=== PATIENT | male | born 1945 | race Caucasian/White ===

== ENCOUNTER 2017-11-07 08:06 | Outpatient (CLI) | payer MEDICARE ==
[~2017-11-07] VITALS: Ht 170.2 cm; Wt 86.4 kg
[~2017-11-07 08:06] MED LIST: ASPIRIN 81M81 MG/TA2 PO; ATIVAN 0.50.5 MG/TAB PO; CENTRUM SILVER1 TA1 PO; CEPHALEXIN500 M1 PO; CIPRO 500MG TA500 MG PO; COLACE 100100 MG/CAP PO; ESTER-C 5001 TAB PO; FELDENE20 MG PO; FLONASE NASAL S16 GM NS; LIORESAL 1010 MG/TAB PO; LOPID 600M600 MG/TAB PO; NAPROSYN 2250 MG/TAB PO; NEURONTIN300 MG/CAP PO; NEURONTIN600 MG/TAB PO; NORCO 325 MG-51 TAB PO; NORCO 325 MG-7.1 TAB PO; OXYCONTIN 20MG20 MG PO; PERCOCET 325 MG1 TA2 PO; PRILOSEC 20MG20 MG PO; PRINIVIL5 MG PO; PYRIDIUM 100MG100 MG PO; RITE AID KRILL500 MG PO; ROBAXIN 75750 MG/TAB PO; ROXICODONE 55 MG/TAB PO; SENOKOT S 50 MG1 TAB PO; ULTRAM 50MG TAB50 MG PO; VITAMIN B-1000 MCG/T PO; VITAMIN B6100 MG PO; ZIAC 2.5/6.25MG1 TAB PO; [UNRECOGNIZED DRUG - OTHER] PO; bacitracin ointment
[2017-11-07 08:30] VITALS: BP 118/65; PULSE 66; TEMP 98
[2017-11-07] MEDS ORDERED: MOBIC15 MG PO (08:52)
[2017-11-07] MEDS ORDERED: CARTIA XT240 MG PO (08:53)
[2017-11-07] MEDS ORDERED: PRADAXA 150MG150 MG PO (08:54)
[2017-11-07] MEDS ORDERED: NATURAL MAGNES200 MG PO (08:54)
== END 2017-11-07 09:57 | disposition home or self-care (01) ==
LOC: COL.CAR 08:06
DX: I48.0 Paroxysmal atrial fibrillation (principal); Z79.01 Long term (current) use of anticoagulants; I10 Essential (primary) hypertension; E78.5 Hyperlipidemia, unspecified; K21.9 Gastro-esophageal reflux disease without esophagitis; Z87.442 Personal history of urinary calculi; Z90.79 Acquired absence of other genital organ(s); Z88.2 Allergy status to sulfonamides; I34.0 Nonrheumatic mitral (valve) insufficiency; Z79.82 Long term (current) use of aspirin; Z87.891 Personal history of nicotine dependence; Z82.49 Family history of ischemic heart disease and other diseases of the circulatory system; Z80.42 Family history of malignant neoplasm of prostate; Z68.29 Body mass index [BMI] 29.0-29.9, adult

== ENCOUNTER 2019-04-10 08:26 | Inpatient (IN) | payer MEDICARE ==
[~2019-04-10] VITALS: Ht 170.2 cm; Wt 84.8 kg
[~2019-04-10 08:26] MED LIST changes: +CARTIA XT240 MG PO; +MOBIC15 MG PO; +NATURAL MAGNES200 MG PO; +PRADAXA 150MG150 MG PO
--- NOTE | 2019-04-10 08:30 | NUR ---
PT ADMITTED TO FLOOR AT THIS TIME. ACCOPANIED. PT BROUGHT SUITCASE ALONG WITH HIM. NO C/O PAIN. EKG BEING OBTAINED.
[2019-04-10 09:13] VITALS: BP 125/80; PULSE 55; TEMP 98.1
[2019-04-10 09:14] VITALS: BP 125/80; PULSE 55; TEMP 98.1
[2019-04-10 09:32] LABS: HEMATOCRIT 39.9 % (42.0-52.0); HEMOGLOBIN 13.5 g/dl (13.5-18.0); MEAN CELL VOLUME 87 fl (80.0-100.0); MEAN CORPUSCULAR HEMOGLOBIN 29 pg (27.0-31.0); MEAN CORPUSCULAR HGB CONC 34 g/dl (33.0-37.0); MEAN PLATELET VOLUME 9.9 fl (7.4-10.4); PLATELET COUNT 310 K/mm3 (130-400); RED BLOOD COUNT 4.61 M/mm3 (4.20-5.60); REDCELL DISTRIBUTION WIDTH-CV 13.8 % (11.5-14.5)
[2019-04-10 09:37] LABS: INR 1.3 (0.8-3.0); PROTHROMBIN TIME 15.3 SECONDS (9.7-12.8)
[2019-04-10 09:43] LABS: ALBUMIN 4.1 gm/dL (3.5-5.0); BILIRUBIN,TOTAL 0.6 mg/dL (0.0-1.0); CALCIUM 9.3 mg/dL (8.4-10.2); CREATININE, serum 1.06 (0.66-1.25); MAGNESIUM 2.1 mg/dL (1.6-2.3); POTASSIUM 4.2 mmol/L (3.4-5.0)
[2019-04-10 11:34] VITALS: BP 134/65; PULSE 55; TEMP 97.8
[2019-04-10 16:07] VITALS: BP 154/107; PULSE 55; TEMP 97.8
--- NOTE | 2019-04-10 17:00 | NUR ---
PT HAD UNEVENTFUL DAY. NO C/O PAIN. HAS BEEN PLEASENT AND COOPERATIVE WITH CARES. NO ISSUES OR CONSERNS VOICED.
[2019-04-10 20:11] VITALS: BP 145/78; PULSE 63; TEMP 98.6
[2019-04-10 20:30] VITALS: PULSE 63
--- NOTE | 2019-04-10 20:30 | NUR ---
Initial shift assessment done- denies any pain/SOB, Up in chair- no requests, states had a good supper, VSS,
[2019-04-11 00:20] VITALS: BP 158/80; PULSE 57; TEMP 98.3
--- NOTE | 2019-04-11 06:00 | NUR ---
Quiet night- no requests, VSS, no chest pain/SOB, Tele on, AM EKG done this morning- QTC 432, SR first degree AV block
[2019-04-11 06:27] LABS: CALCIUM 9.3 mg/dL (8.4-10.2); CREATININE, serum 0.94 (0.66-1.25); POTASSIUM 4.3 mmol/L (3.4-5.0)
[2019-04-11 07:55] VITALS: BP 108/70; PULSE 64; TEMP 98.5
--- NOTE | 2019-04-11 10:35 | NUR ---
Initial visit; Patient and his thanked Management Services Technician for looking in on them, visiting and offering God's blessings.
[2019-04-11 12:17] VITALS: BP 136/82; PULSE 61; TEMP 98.6
--- NOTE | 2019-04-11 16:22 | NUR ---
SW met with patient about discharge planning. Patient reports he will likely discharge tomorrow. Patient lives independently at home with his . Patient's PCP was Dr Costello but he is switching to Dr Diaz. Patient's preferred pharmacy is [facility] and he does not have any difficulties obtaining medications. Patient reports he does have a DPOA-HC. SW does not anticipate any discharge needs.
[2019-04-11 16:33] VITALS: BP 154/99; PULSE 58; TEMP 97.4
--- NOTE | 2019-04-11 19:00 | NUR ---
PT HAD UNEVENTFUL DAY. PLEASENT AND COOPERATIVE WITH CARES. NO ISSUES OR CONSERNS VOICED. HAS BEEN UP AMBULATING IN HALLS. IN TO VISIT SEVERAL TIMES THROUGHOUT THE DAY. TELE BOX HAD BEEN SWITCHED OUT IN EARLY PART OF SHIFT DUE TO INTERFERANCE, NO ISSUES REAMINING AFTERWARDS. NO C/O PAIN. PT EKG THIS AM SHOWED QTC UNDER 500, SOTOLOL WAS GIVEN SCHEDULED. QUESTIONS ANSWERED APPROPERATLY.
[2019-04-11 20:27] VITALS: BP 128/64; PULSE 67; TEMP 98.3; TEMP 980.3
--- NOTE | 2019-04-11 20:45 | NUR ---
Patient assessed at this time. Alert and oriented, and able to make needs known. Denies having pain and discomfort. Peripheral IV flushed to right forearm. Site is without redness, warmth, swelling, and pain. LS CTA. Denies having SOB and dyspnea. Wears home CPAP during the night. HRR. Telemetry in place. BSAx4. Abdomen soft and non-tender. No edema noted. Patient self caths for urination. Denies having any questions, needs, or concerns at this time. Sitting in recliner watching TV at this time. Call light is within reach.
[2019-04-11 23:20] VITALS: BP 134/70; PULSE 67; TEMP 98.1
--- NOTE | 2019-04-12 03:01 | NUR ---
Patient has been resting in bed with eyes closed. CPAP is on. Has denied having any pain, questions, needs, or concerns. Call light is within reach.
[2019-04-12 04:56] VITALS: BP 125/72; PULSE 58; TEMP 97.4
--- NOTE | 2019-04-12 05:48 | NUR ---
Resting in bed with eyes closed. Call light within reach.
[2019-04-12 07:02] LABS: CALCIUM 9.6 mg/dL (8.4-10.2); CREATININE, serum 0.98 (0.66-1.25); POTASSIUM 4.3 mmol/L (3.4-5.0)
--- NOTE | 2019-04-12 07:50 | NUR ---
Report given to day shift nurse.
--- NOTE | 2019-04-12 08:20 | NUR ---
Pt sitting up in chair, alert and oriented x4. Denies any shortness of breath or chest pain. Breathing even and unlabored, breath sounds clear. Completed morning assessment. Administered betapace, QTC 429. Pt will be discharged today, once seen by cardiology. Denies any needs at this time. Call light in reach.
[2019-04-12 08:23] VITALS: BP 131/79; PULSE 66; TEMP 97.5
--- NOTE | 2019-04-12 11:12 | NUR ---
Follow-up visit; Patient and thanked Airline Ticket Agent for looking in on them again before Reza is discharged and stated they appreciate the friendliness and good care Reza has received.
[2019-04-12] MEDS ORDERED: BETAPACE 80MG80 MG PO (11:16)
--- NOTE | 2019-04-12 12:31 | NUR ---
All paperwork gone over, all questions asked and answered. Telemetry remove. All paperwork signed and belongings gathered. Escorted out by [facility] staff.
== END 2019-04-12 12:34 | disposition home or self-care (01) | DRG 310 ==
LOC: MEDICAL 08:26
PROVIDERS: ADMIT Internal Medicine Cardiovascular Disease
DX: I48.0 Paroxysmal atrial fibrillation (principal); E78.5 Hyperlipidemia, unspecified; I10 Essential (primary) hypertension; I34.0 Nonrheumatic mitral (valve) insufficiency; K21.9 Gastro-esophageal reflux disease without esophagitis; M19.90 Unspecified osteoarthritis, unspecified site; Z79.01 Long term (current) use of anticoagulants; Z85.46 Personal history of malignant neoplasm of prostate; Z79.82 Long term (current) use of aspirin; Z95.818 Presence of other cardiac implants and grafts; Z88.2 Allergy status to sulfonamides

== ENCOUNTER 2020-01-07 10:24 | Day surgery (SDC) | payer MEDICARE ==
[~2020-01-07] VITALS: Ht 170.2 cm; Wt 84.8 kg
[~2020-01-07 10:24] MED LIST changes: +BETAPACE 80MG80 MG PO
[2020-01-07] MEDS ORDERED: HCTZ 25MG TAB25 MG PO (11:06)
[2020-01-07] MEDS ORDERED: MULTI VITAMINS1 TAB PO (11:07)
[2020-01-07] MEDS ORDERED: BIOTIN5000 MCG PO (11:08)
[2020-01-07] MEDS ORDERED: VITAMINC1000TA PO (11:09)
[2020-01-07 11:41] VITALS: BP 145/88; PULSE 57; TEMP 98
[2020-01-07 14:43] VITALS: BP 138/61; PULSE 61; TEMP 98.1
--- NOTE | 2020-01-07 14:43 | NUR ---
Pt to [facility] bay 1 via cart from OR. Pt drowsy, but awake. Denies pain or nausea. [place] to dependant drainage. Yellow clear urine noted. Stat lock in place. Water, soda and muffin provided per pt request. Will continue to monitor. Call light within reach.
[2020-01-07 15:00] VITALS: BP 168/80; PULSE 58
--- NOTE | 2020-01-07 15:00 | NUR ---
Pt continues to rest. Tolerating food and PO fluids without difficulties. Will continue to monitor. Call light within reach.
[2020-01-07 15:15] VITALS: BP 152/83; PULSE 61
--- NOTE | 2020-01-07 15:15 | NUR ---
Pt continues to rest. Denies needs. Call light within reach.
[2020-01-07 15:30] VITALS: BP 165/76; PULSE 63
--- NOTE | 2020-01-07 15:30 | NUR ---
IV site discontinued with all parts intact. Discharge instructions reviewed. Pt voices understanding. Education provided on proper way to DC lambert. Pt voices understanding. 10ml syringe provided for pt to use at home. Pt refuses leg bag stating "I don't like the leg bag and have always just used the big bags." Pt up to dress. Call light within reach.
--- NOTE | 2020-01-07 15:50 | NUR ---
Pt escorted to private car via wheel chair. Pt accompanied home by his .
== END 2020-01-07 15:50 | disposition home or self-care (01) ==
LOC: SDCO 10:24
DX: N32.0 Bladder-neck obstruction (principal); I10 Essential (primary) hypertension; Z85.46 Personal history of malignant neoplasm of prostate; Z90.79 Acquired absence of other genital organ(s); N52.9 Male erectile dysfunction, unspecified; E78.00 Pure hypercholesterolemia, unspecified; Z79.899 Other long term (current) drug therapy; Z79.82 Long term (current) use of aspirin; Z87.891 Personal history of nicotine dependence; Z88.2 Allergy status to sulfonamides; I48.91 Unspecified atrial fibrillation; Z95.818 Presence of other cardiac implants and grafts; G47.33 Obstructive sleep apnea (adult) (pediatric); K21.9 Gastro-esophageal reflux disease without esophagitis; G89.29 Other chronic pain; M54.5 Low back pain
CPT/HCPCS: C1769; C1894; J2704; J3301; J7120

== ENCOUNTER 2021-06-03 08:19 | Outpatient (CLI) | payer MEDICARE ==
[~2021-06-03 08:19] MED LIST changes: +BETAPACE 120MG120 MG PO; +BIOTIN5000 MCG PO; +DAZIDOX10 MG PO; +DUO-KAPS1 CAP PO; +GRALISE600 MG PO; +HCTZ 25MG TAB25 MG PO; +PRAVACHOL 20MG20 MG PO; +VITAMIN B-6100 MG PO; +VITAMINC1000TA PO
[2021-06-03 08:50] VITALS: BP 161/98; PULSE 59; TEMP 98.4
[2021-06-03 09:10] VITALS: BP 155/85; PULSE 63
[2021-06-03 10:00] VITALS: BP 135/73; PULSE 55
[2021-06-03 10:15] VITALS: BP 143/71; PULSE 58
[2021-06-03 10:30] VITALS: BP 135/74; PULSE 60
[2021-06-03 10:45] VITALS: BP 140/79; PULSE 61
--- NOTE | 2021-06-03 11:30 | NUR ---
Discharge instructions given to pt.pt verbalizes understanding.Pt escorted out via wheelchair by this nurse.
== END 2021-06-03 13:12 ==
LOC: COL.RAD 08:19
DX: M48.061 Spinal stenosis, lumbar region without neurogenic claudication (principal); Z98.1 Arthrodesis status
CPT/HCPCS: Q9965

== ENCOUNTER 2021-06-11 07:34 | Day surgery (SDC) | payer MEDICARE ==
[~2021-06-11] VITALS: Ht 170.3 cm; Wt 87.0 kg
[2021-06-11 08:24] VITALS: BP 135/88; PULSE 56; TEMP 98.1
[2021-06-11 10:15] VITALS: BP 143/86; PULSE 51
--- NOTE | 2021-06-11 10:15 | NUR ---
pt to eu 9 via bed from labeling associate. Awake and alert, in room. dressing over left chest is clean and dry, no swelling. call light in reach. takes pop and snack
[2021-06-11 10:30] VITALS: BP 140/78; PULSE 56
[2021-06-11 10:45] VITALS: BP 134/74; PULSE 56
--- NOTE | 2021-06-11 11:00 | NUR ---
reviewed discharge inst. with pt on care of site, activity today and followup with wound check at clinic. No new meds ordered. iv d'cd intact. pt up and dressed and discharged via w/c to car with
== END 2021-06-11 11:00 | disposition home or self-care (01) ==
LOC: COL.CAR 07:34
DX: Z45.010 Encounter for checking and testing of cardiac pacemaker pulse generator [battery] (principal); I48.0 Paroxysmal atrial fibrillation; I34.0 Nonrheumatic mitral (valve) insufficiency; I10 Essential (primary) hypertension; E78.2 Mixed hyperlipidemia; G47.33 Obstructive sleep apnea (adult) (pediatric); G45.9 Transient cerebral ischemic attack, unspecified; Z20.822 Contact with and (suspected) exposure to COVID-19; Z99.89 Dependence on other enabling machines and devices; Z79.899 Other long term (current) drug therapy
CPT/HCPCS: J2250; J3010

== ENCOUNTER 2021-09-20 11:00 | Outpatient (RCR) | payer MEDICARE | END 2021-09-21 | disposition home or self-care (01) | LOC: PT.GENESIS | DX: M96.1 Postlaminectomy syndrome, not elsewhere classified (principal) ==

== ENCOUNTER 2021-09-29 11:00 | Outpatient (RCR) | payer MEDICARE | END 2021-10-15 | disposition home or self-care (01) | LOC: PT.GENESIS | DX: M51.16 Intervertebral disc disorders with radiculopathy, lumbar region (principal); Z98.1 Arthrodesis status ==

== ENCOUNTER 2022-04-13 13:30 | Outpatient (RCR) | payer MEDICARE | END 2022-04-14 | disposition still patient (30) | LOC: WSPT | DX: M47.26 Other spondylosis with radiculopathy, lumbar region (principal); K64.9 Unspecified hemorrhoids; R26.89 Other abnormalities of gait and mobility; R41.3 Other amnesia; R19.7 Diarrhea, unspecified ==

== ENCOUNTER 2022-04-19 08:03 | Day surgery (SDC) | payer MEDICARE ==
[~2022-04-19] VITALS: Ht 170.2 cm; Wt 87.8 kg
[2022-04-19 08:30] VITALS: BP 132/77; PULSE 63; TEMP 97.6
[2022-04-19] MEDS ORDERED: OMNICEF 300MG300 MG PO (08:41)
--- NOTE | 2022-04-19 10:10 | NUR ---
PT was taken back to the OR
[2022-04-19 10:32] VITALS: BP 117/68; PULSE 59; TEMP 98.3
[2022-04-19 10:47] VITALS: BP 109/73; PULSE 81
[2022-04-19 11:02] VITALS: BP 128/71; PULSE 83
--- NOTE | 2022-04-19 11:36 | NUR ---
HYDRAULIC PUNCH PRESS OPERATOR PRUM contacted about Flagyl; stated OK to start.
--- NOTE | 2022-04-19 12:05 | NUR ---
1032 - PT arrives drowsy but oriented. Monitors applied and VSS. PT denies pain and nausea. NO vomiting. PT served ice water and a warm muffin per request. Visitors remain present. Side rails x2. PT oriented to room and call grijalva,within reach. 1047 - VSS. PT has finished his muffin. Expressed desire to be discharged. Call grijalva remains witin reach. 1102 - VSS. IV discontinued. Catheter tip intact. Pressure bandage applied. PT assisted to side of bed to use urinal, per request. Call grijalva remains within reach, remains present. PT denies needing assistance. 1105 - PT back to bed. Side rails x2. Call grijalva within reach. PT is changing into personal clothes, denied needing RN assistance. 1115 - DC instructions and educational material reviewed with the PT who verbalized understanding and signed the related paperwork. Supplies provided: x4 4x4 x4 2x2, two packs of soft wipes, follow up appointment card w/ office number. 6026 - PT dismissed via wheelchair to the PT entrence by Ce STEARNS. PT has DC packet and personal belongings, and was transferred into the care of his family, who is driving private car. PT has supplies. Questions answered to PT satisfaction.
== END 2022-04-19 12:00 | disposition home or self-care (01) ==
LOC: SDCO 08:03
DX: K64.1 Second degree hemorrhoids (principal); K21.9 Gastro-esophageal reflux disease without esophagitis; K62.5 Hemorrhage of anus and rectum; G47.33 Obstructive sleep apnea (adult) (pediatric); Z99.89 Dependence on other enabling machines and devices; Z79.01 Long term (current) use of anticoagulants
CPT/HCPCS: J0690; J2704; J3010; J7120

== ENCOUNTER 2022-05-13 12:45 | Outpatient (RCR) | payer MEDICARE ==
[~2022-05-13 12:45] MED LIST changes: +OMNICEF 300MG300 MG PO
== END 2022-05-15 | disposition home or self-care (01) ==
LOC: WSPT
DX: M54.50 Low back pain, unspecified (principal); R26.89 Other abnormalities of gait and mobility

== ENCOUNTER 2022-05-25 11:15 | Outpatient (RCR) | payer MEDICARE ==
[2022-05-25] MEDS ORDERED: SINEMET 25/101 UDTAB PO (17:50)
[2022-05-30] MEDS ORDERED: COZAAR 25MG25 MG/TAB PO (23:50)
[2022-05-31] MEDS ORDERED: INVANZ INJ1 G/VIAL IV ×2 (15:22)
[2022-05-31] MEDS ORDERED: MERREM VIA500 MG/VIA IV (15:48)
== END 2022-06-06 11:36 | disposition home or self-care (01) ==
LOC: WSPT 11:15
DX: M54.50 Low back pain, unspecified (principal); R26.89 Other abnormalities of gait and mobility

== ENCOUNTER 2022-05-25 12:34 | Inpatient (IN) | payer MEDICARE ==
[~2022-05-25] VITALS: Ht 170.2 cm; Wt 86.1 kg
[2022-05-25 12:54] LABS: HEMATOCRIT 46.7 % (42.0-52.0); MEAN CELL VOLUME 87 fl (80.0-100.0); MEAN CORPUSCULAR HEMOGLOBIN 30 pg (27-31); MEAN CORPUSCULAR HGB CONC 34 g/dl (33.0-37.0); PLATELET COUNT 328 K/mm3 (130-400); RED BLOOD COUNT 5.39 M/mm3 (4.20-5.60); REDCELL DISTRIBUTION WIDTH-CV 13.2 % (11.5-14.5)
[2022-05-25 13:12] LABS: ALBUMIN 4.1 gm/dL (3.4-4.8); BILIRUBIN,TOTAL 1.4 mg/dL (0.2-1.2); CALCIUM 10.3 mg/dL (8.4-10.2); CREATININE, serum 1.17 mg/dL (0.72-1.25); POTASSIUM 3.9 mmol/L (3.5-4.5); TOTAL PROTEIN 7.8 gm/dL (6.2-8.1)
[2022-05-25 13:23] LABS: BAND 7 % (0-10); LYMPHOCYTE 9 % (20.0-51.0); NEUTROPHILS 84 % (42.0-75.2)
[2022-05-25 13:23] LABS: COLLECTION METHOD CATHETER
[2022-05-25 13:24] LABS: PLATELET ESTIMATE NORMAL (NORMAL)
[2022-05-25 13:32] LABS: PROLACTIN 39.5 ng/mL (3.46-19.40)
[2022-05-25 13:35] LABS: SQUAMOUS EPITHELIAL 0-2 /hpf (0-10); URINE BACTERIA Rare /hpf (NONE SEEN); URINE RBC >50 /hpf (0-2)
[2022-05-25 13:39] LABS: URINE APPEARANCE Hazy (CLEAR/HAZY); URINE COLOR Yellow (YELLOW)
[2022-05-25 13:40] LABS: PH 6 (5-8); URINE GLUCOSE Negative (NEGATIVE); URINE KETONE Negative (NEGATIVE); URINE PROTEIN(semi-quant) 1+ (NEGATIVE)
[2022-05-25 13:41] LABS: URINE BLOOD 2+ (NEGATIVE); URINE NITRATE Positive (NEGATIVE); URINE UROBILINOGEN Negative (NEGATIVE)
[2022-05-25 13:52] LABS: TRICYCLIC ANTIDEPRESS URINE NEGATIVE
[2022-05-25 14:13] LABS: C-REACTIVE PROTEIN 0.21 mg/dL (0.00-0.50)
[2022-05-25] MEDS ORDERED: SINEMET 25/101 UDTAB PO (17:50)
[2022-05-25 17:51] VITALS: BP 128/77; PULSE 98; TEMP 102.8; TEMP 1028
--- NOTE | 2022-05-25 19:09 | NUR ---
Patient has been sleeping in his room. He was transfered from 317 to 312 because his sink is not working. He is getting 100 ml/hr NS. Report has been given to night RN.
[2022-05-25 19:38] VITALS: BP 110/59; PULSE 82; TEMP 98.3
[2022-05-25 19:50] VITALS: BP 108/60; PULSE 80; TEMP 97.9
[2022-05-26] VITALS (347 sets, daily range): BP systolic 90–161; BP diastolic 52–101; PULSE 72–116; TEMP 98.4–101.6; O2SAT 69–100
[2022-05-26 00:54] LABS: INR 1.7 (0.8-3.0); PROTHROMBIN TIME 19.5 SECONDS (9.7-12.8)
[2022-05-26 00:57] LABS: HEMOGLOBIN 14.6 g/dl (13.5-18.0); MEAN CELL VOLUME 89 fl (80.0-100.0); MEAN CORPUSCULAR HEMOGLOBIN 30 pg (27-31); MEAN CORPUSCULAR HGB CONC 34 g/dl (33.0-37.0); MEAN PLATELET VOLUME 9.5 fl (7.4-10.4); PLATELET COUNT 235 K/mm3 (130-400); RED BLOOD COUNT 4.86 M/mm3 (4.20-5.60); REDCELL DISTRIBUTION WIDTH-CV 13.5 % (11.5-14.5)
[2022-05-26 01:00] LABS: CALCIUM 9.4 mg/dL (8.4-10.2); CREATININE, serum 1.96 mg/dL (0.72-1.25)
[2022-05-26 01:15] LABS: TROPONIN-I 0.107 ng/mL (0.00-0.033)
[2022-05-26 01:27] LABS: BAND 31 % (0-10); LYMPHOCYTE 3 % (20.0-51.0); METAMYELOCYTE 4 % (0-0); NEUTROPHILS 54 % (42.0-75.2); PLATELET ESTIMATE NORMAL (NORMAL)
--- NOTE | 2022-05-26 02:30 | NUR ---
RN WAS CALLED INTO ROOM AROUND 1929, TECH STATING "PT IS DIAPHORETIC, TEMP IS 102. HE JUST DOESN'T LOOK GOOD". I WENT IN TO ASSESS PATIENT. HE IS SWEATY. BLOOD SUGAR CHECKED AT 78. GAVE HIM JUICE TO COVER JUST IN CASE. HIS VITALS WERE STABLE AT THIS TIME. NO OTHER SPECIFIC CONCERNS. AT MIDNIGHT, BLOOD PRESSURE WAS 90/56. NOTED THAT THE LACTIC LEVEL AT 1800 ON 05/25 WAS 4.8. REPEAT WAS NOT DRAWN. NOTIFIED PROVIDER. ORDERS FOR FLUID BOLUS. POTASSIUM REPLACEMENT. ASPIRIN. IV ANTIBIOTICS. STAT LAB AND CT OF ABD/PELVIS. LAB RESULTED. LACTIC STILL HIGH AT 4.4. CREAT AT 1.96. WBC AT 38. AND POSITIVE BLOOD CULTURES FOR E.COLI. PROVIDER (KEVIN) NOTIFIED. RECHECK OF BP AT 103/58. PT IS PRESENTING BETTER ALREADY. BOLUS STILL GOING NOW. WILL WATCH CLOSELY.
[2022-05-26 04:12] LABS: HEMATOCRIT 39.5 % (42.0-52.0); HEMOGLOBIN 13.6 g/dl (13.5-18.0); MEAN CELL VOLUME 87 fl (80.0-100.0); MEAN CORPUSCULAR HEMOGLOBIN 30 pg (27-31); MEAN CORPUSCULAR HGB CONC 34 g/dl (33.0-37.0); MEAN PLATELET VOLUME 9.9 fl (7.4-10.4); PLATELET COUNT 218 K/mm3 (130-400); RED BLOOD COUNT 4.53 M/mm3 (4.20-5.60); REDCELL DISTRIBUTION WIDTH-CV 13.5 % (11.5-14.5)
[2022-05-26 04:42] LABS: CALCIUM 8.7 mg/dL (8.4-10.2); CREATININE, serum 1.81 mg/dL (0.72-1.25); POTASSIUM 3.4 mmol/L (3.5-4.5)
[2022-05-26 05:07] LABS: BAND 37 % (0-10); LYMPHOCYTE 1 % (20.0-51.0); METAMYELOCYTE 10 % (0-0); NEUTROPHILS 48 % (42.0-75.2); PLATELET ESTIMATE NORMAL (NORMAL)
--- NOTE | 2022-05-26 07:40 | NUR ---
PT HYPOTENSIVE, TACHYCARDIC WITH A FIB, LACTATE 4, SLIGHTLY DIAPHORETIC, Fabien PATINO COMPLIANCE TECHNICIAN NOTIFIED
--- NOTE | 2022-05-26 08:46 | NUR ---
Fabien PATINO ARC AIR OPERATOR NOTIFIED OF CR. TROP 0.091
--- NOTE | 2022-05-26 09:26 | NUR ---
Initial visit; Patient and his thanked Box Blank Machine Operator for stopping. Patient was brushing his teeth. Box Blank Machine Operator wished him well and offered God's blessings. Box Blank Machine Operator will look in on Joe again while he is hospitalized.
--- NOTE | 2022-05-26 09:57 | NUR ---
PT TRANSFERRED TO ICU, REPORT GIVEN TO ABIGAIL RN, NO FURTHER CONCERNS
--- NOTE | 2022-05-26 10:42 | NUR ---
Pt arrived to ICU 6 from medical floor. at bedside. Pt alert, oriented to place, conversation confused but pt pleasant. Pt denies pain at this time. Pt has lambert in place, no issues noted. Pt has RFA IV and LFA IV. PICC team at bedside to place PICC line. Amio gtt started per protocol. Heparin and electrolyte replacement not started at this time d/t incompatibilty and having PICC line placed. Pt also to go to OR for scheduled cysto post PICC placement. Pt and updated on POC, left bedside, will return this afternoon. No other concerns noted. Pt hooked up to monitors.
--- NOTE | 2022-05-26 11:30 | NUR ---
Philosophy Instructor met with patient's , Gigi (ph#[phone]) to complete initial intake as patient is in surgery at this time. Patient and his live in [place] and patient sees Dr. Alves for primary care. Patient obtains medications from [facility] with no difficulties and has a rollator, transport chair, and CPAP at home. Patient also has grab bars installed in the bathroom. Patient is mostly independent with ADLS, however occasionally needs assistance with transferring off the toilet and putting on his pants. Patient's is able to assist with these tasks as needed. Gigi advised they are scheduled to move into [facility] in a couple months. Patient has DPOA-HC in EMR which designates his Gigi as primary agent and his son and daughter in law, Pietro and Alis as alternate agents. SW will continue to follow for discharge planning needs.
--- NOTE | 2022-05-26 12:51 | NUR ---
1225: PT ARRIVED BACK FROM SURGERY TO ICU 6. AT BEDSIDE. PT AWAKE, ALERT BUT CONFUSED, PLEASANT AND COOPERATIVE WITH CARES. DR. NOLASCO GAVE OK TO START HEPARIN GTT. MEDICATIONS RUNNING PER ORDERS/DEC. VS MONITORING IN PROGRESS. NO FURTHER NEEDS AT THIS TIME.
--- NOTE | 2022-05-26 14:50 | NUR ---
Pt becoming more restless and confused. Pt pulling at lines and hard to redirect. Hospitalist notified and order for haldol placed and given.
--- NOTE | 2022-05-26 15:03 | NUR ---
PT RESTING COMFORTABLY IN BED, AT BEDSIDE. DENIES PAIN AT THIS TIME.
[2022-05-26 18:37] LABS: ARTERIAL BLD GAS O2 SATURATION 93.3 % (92-100); ARTERIAL BLD GAS TCO2 CT 16.4; ARTERIAL BLOOD GAS BASE EXCESS -6.3 (-2-2); ARTERIAL BLOOD GAS HCO3 15.6 meq/L (22-26); ARTERIAL BLOOD GAS PO2 63.8 mmHg (80-100); ARTERIAL BLOOD GAS pH 7.44 (7.35-7.45)
[2022-05-26 18:38] LABS: ARTERIAL BLOOD GAS PCO2 23.5 mmHg (35-45)
--- NOTE | 2022-05-26 20:49 | NUR ---
BEDSIDE SHIFT REPORT RECEIVED FROM JINNY HAYES. PT CURRENTLY RESTING IN BED WITH AT BEDSIDE. NO C/O PAIN OR DISCOMFORT. VSS. ALL LINES RUNNING ACCORDING TO REPORT (SEE DRIP FLOWSHEET). JIMENEZ DRAINING APPROPRIATELY. NO ACUTE CHANGES NOTED AT THIS TIME
[2022-05-27] VITALS (755 sets, daily range): BP systolic 121–154; BP diastolic 69–112; PULSE 79–134; TEMP 98.6–100.3; O2SAT 71–100
--- NOTE | 2022-05-27 01:31 | NUR ---
WHILE THIS NURSE WAS IN ANOTHER PT ROOM DURING A CODE PREFORMING CPR, THIS PT SELF REMOVED PICC. PICC LINE WAS INTACT, MEASURING 43CM IN LENGTH WITH A BLUNT END. TWO NEW IVS STARTED TO CONTINUE MEDICATION ADMINISTRATION (SEE DRIP FLOW SHEET).
[2022-05-27 04:28] LABS: HEMOGLOBIN 14.6 g/dl (13.5-18.0); MEAN CELL VOLUME 86 fl (80.0-100.0); MEAN CORPUSCULAR HEMOGLOBIN 30 pg (27-31); MEAN CORPUSCULAR HGB CONC 35 g/dl (33.0-37.0); MEAN PLATELET VOLUME 9.9 fl (7.4-10.4); PLATELET COUNT 171 K/mm3 (130-400); RED BLOOD COUNT 4.89 M/mm3 (4.20-5.60)
[2022-05-27 04:44] LABS: ALBUMIN 2.9 gm/dL (3.4-4.8); BILIRUBIN,TOTAL 0.7 mg/dL (0.2-1.2); CALCIUM 8.9 mg/dL (8.4-10.2); CREATININE, serum 1.62 mg/dL (0.72-1.25); POTASSIUM 3.5 mmol/L (3.5-4.5); TOTAL PROTEIN 6.4 gm/dL (6.2-8.1)
[2022-05-27 04:54] LABS: BAND 23 % (0-10); LYMPHOCYTE 3 % (20.0-51.0); METAMYELOCYTE 1 % (0-0); NEUTROPHILS 70 % (42.0-75.2)
[2022-05-27 04:55] LABS: PLATELET ESTIMATE NORMAL (NORMAL)
--- NOTE | 2022-05-27 10:37 | NUR ---
Pt resting comfortably in bed, at bedside. Pt sleeping, does arouse to name and open eyes spontaneously. Pt oriented to birthday, unable to state time, place, situation. Pt does know that he lives in [place]. Pt cooperative with cares at this time. pt is wearing mittens, good circulation noted to bilateral hands. New PICC placed to GRICELDA. IVF and gtts running per protocol/orders w/o issues.
--- NOTE | 2022-05-27 19:27 | NUR ---
PT HR HAS BEEN BACK AND FORTH 120S-140S AND CONSISTENTLY STAYING IN THE 140S. DBP HAS BEEN INCREASING THROUGHOUT AFTERNOON LOW 100S. DR. SANTORO NOTIFIED AT THIS TIME. ORDER TO INCREASE AMIO GTT TO 1MG/MIN FOR 12 HRS.
--- NOTE | 2022-05-27 20:59 | NUR ---
BEDSIDE SHIFT REPORT RECEIVED FROM JINNY HAYES. PT CURRENTLY RESTING IN BED WITH SON AT BEDSIDE. NO CURRENT C/O PAIN OR DISCOMFORT. ALL LINES RUNNING ACCORDING TO REPORT (SEE DRIP FLOW SHEET). JIMENEZ DRAINING APPROPRIATELY. VSS. NO ACUTE CHANGES NOTED AT THIS TIME
[2022-05-28] VITALS (734 sets, daily range): BP systolic 127–165; BP diastolic 82–106; PULSE 76–146; TEMP 97.9–98.9; O2SAT 71–100
[2022-05-28 05:41] LABS: ALBUMIN 2.2 gm/dL (3.4-4.8); BILIRUBIN,TOTAL 0.9 mg/dL (0.2-1.2); CALCIUM 7.7 mg/dL (8.4-10.2); CREATININE, serum 0.82 mg/dL (0.72-1.25); TOTAL PROTEIN 5.1 gm/dL (6.2-8.1)
[2022-05-28 05:51] LABS: POTASSIUM 2.8 mmol/L (3.5-4.5)
--- NOTE | 2022-05-28 09:00 | NUR ---
PT ASSESSED. VSS. PT ADJUSTED IN BED. CALL LIGHT WITHIN REACH. AT BEDSIDE.
--- NOTE | 2022-05-28 17:00 | NUR ---
NS DISCONTINUED AT 1700 PER DOCTORS ORDERS.
--- NOTE | 2022-05-28 17:11 | NUR ---
DR. BROWN CONTACTED FOR AN INFECTIOUS DISEASE CONSULT.
--- NOTE | 2022-05-28 19:26 | NUR ---
BEDSIDE SHIFT REPORT RECEIVED FROM JINNY ALVARADO. PT CURRENTLY RESTING IN BED WITH AT BEDSIDE. NO C/O PAIN OR DISCOMFORT. LINES RUNNING ACCORDING TO REPORT (SEE DRIP FLOW SHEET). JIMENEZ DRAINING APPROPRIATELY. CURRENTLY IN SR. VSS WITH NO ACUTE CHANGES NOTED.
[2022-05-29] VITALS (794 sets, daily range): BP systolic 102–169; BP diastolic 81–115; PULSE 63–80; TEMP 97.7–99.3; O2SAT 75–100
[2022-05-29 06:28] LABS: BASO # 0.1 K/mm3 (0.0-0.2); BASO % 0.5 % (0.0-2.0); EOS # 0.2 K/mm3 (0.0-0.7); EOS % 1.2 % (0.0-4.0); GRAN % 77.7 % (42.2-75.2); LYMPH # 1.9 K/mm3 (1.2-3.4); LYMPH % 11.1 % (20.0-51.0); MEAN CELL VOLUME 86 fl (80.0-100.0); MEAN CORPUSCULAR HGB CONC 35 g/dl (33.0-37.0); MEAN PLATELET VOLUME 10.8 fl (7.4-10.4); MONO # 1.4 K/mm3 (0.1-0.6); MONO % 8.4 % (1.7-9.3); PLATELET COUNT 193 K/mm3 (130-400); RED BLOOD COUNT 4.06 M/mm3 (4.20-5.60); REDCELL DISTRIBUTION WIDTH-CV 13.6 % (11.5-14.5)
[2022-05-29 06:36] LABS: MEAN CORPUSCULAR HEMOGLOBIN 30 pg (27-31)
[2022-05-29 06:38] LABS: HEMOGLOBIN 12.1 g/dl (13.5-18.0)
[2022-05-29 06:41] LABS: ALBUMIN 2.5 gm/dL (3.4-4.8); BILIRUBIN,TOTAL 1.1 mg/dL (0.2-1.2); CALCIUM 8.7 mg/dL (8.4-10.2); CREATININE, serum 0.78 mg/dL (0.72-1.25); TOTAL PROTEIN 5.7 gm/dL (6.2-8.1)
--- NOTE | 2022-05-29 09:00 | NUR ---
PT ASSESSMENT COMPLETED. VSS. PT IS STILL PLESANTLY CONFUSED. PT REPOSITIONED IN BED. CALL LIGHT WITHIN REACH.
--- NOTE | 2022-05-29 16:30 | NUR ---
CALLED IN REPORT TO GENNA ON THE MEDICAL FLOOR. PT TRANSPORTED TO THE MEDICAL FLOOR AT THIS TIME.
--- NOTE | 2022-05-29 17:00 | NUR ---
Patient came to the unit by bed, alert and partialy orietned, VSS. at the bedside. Telemetry in place NSR. Receiving Hep gtt 15 ml/hr. Potassium replaced. Pericare provided. No other needs at this time. Call light within reach, bed alarm on.
[2022-05-30 03:38] VITALS: BP 168/85; PULSE 64; TEMP 98.3
[2022-05-30 05:32] LABS: HEMATOCRIT 38.5 % (42.0-52.0); HEMOGLOBIN 13.4 g/dl (13.5-18.0); MEAN CELL VOLUME 85 fl (80.0-100.0); MEAN CORPUSCULAR HEMOGLOBIN 30 pg (27-31); MEAN CORPUSCULAR HGB CONC 35 g/dl (33.0-37.0); MEAN PLATELET VOLUME 10.6 fl (7.4-10.4); PLATELET COUNT 184 K/mm3 (130-400); RED BLOOD COUNT 4.51 M/mm3 (4.20-5.60); REDCELL DISTRIBUTION WIDTH-CV 13.5 % (11.5-14.5)
--- NOTE | 2022-05-30 05:37 | NUR ---
notified Allison Hernandez APRN of foul smelling loose stools and excoriated, red, raised rash on groin, scrotum and buttocks, orders rec'd. stool specimen sent to lab, barrier cream and lotrimin powder applied to excoriated, raw skin. x2 loose stools this shift, lambert patent and secure, heparin @15 cc/hr, awaiting am PTT.
[2022-05-30 05:49] LABS: CALCIUM 9.1 mg/dL (8.4-10.2); CREATININE, serum 0.74 mg/dL (0.72-1.25); POTASSIUM 3.5 mmol/L (3.5-4.5)
--- NOTE | 2022-05-30 06:16 | NUR ---
PTT 61.5, rate increased to 16ml/hr 1600 units/hr per protocol, next check ordered for 1210
[2022-05-30 07:01] LABS: BAND 3 % (0-10); BASOPHIL 1 % (0-2); EOSINOPHIL 1 % (0-4); LYMPHOCYTE 15 % (20.0-51.0); NEUTROPHILS 67 % (42.0-75.2); PLATELET ESTIMATE NORMAL (NORMAL)
[2022-05-30 07:17] VITALS: BP 163/89; BP 168/89; PULSE 63; TEMP 98.1
--- NOTE | 2022-05-30 08:00 | NUR ---
Pt in bed Alert but confused, shift assessment completed. Picc line in place on Right upperarm. CDI, no edema or redness. Skin assessment shows redness and rash on scrotum and excoriation on bottom. Folley catheter in place, damon, hazy urine. Loose stool incontinent episode. Contact Isolation precautions in place. Fall precautions in place. Call light within reach.
[2022-05-30 11:46] VITALS: BP 143/83; PULSE 77; TEMP 97.8
[2022-05-30 15:23] VITALS: BP 156/84; PULSE 68; TEMP 98.1
--- NOTE | 2022-05-30 18:40 | NUR ---
PICC line flushed with good blood return. No s/s of complications. IV medications given as ordered.
[2022-05-30 20:14] VITALS: BP 137/77; PULSE 73; TEMP 97.7
[2022-05-30 23:09] VITALS: BP 157/68; PULSE 73; TEMP 98.4
[2022-05-30] MEDS ORDERED: COZAAR 25MG25 MG/TAB PO (23:50)
[2022-05-31 03:24] VITALS: BP 156/76; PULSE 75; TEMP 98.3
--- NOTE | 2022-05-31 05:04 | NUR ---
pt continues having some confusion during the noc, but pleasant and cooperative. no SOB or CP reported, lambert patent/secure with hazy damon urine, receiving IV antibiotics per PICC. barrier cream and lotrimin to excoriated skin on groin, scrotum and buttocks.
[2022-05-31 07:41] VITALS: BP 137/86; PULSE 68; TEMP 97.5
--- NOTE | 2022-05-31 08:00 | NUR ---
Pt lying down in bed, alert but confused. VSS. Shift assessment complete. Pt shows grimmacing while assessing skin on his bottom. Quick change wrap in place to prevent moisture and more irritation on testicular and buttocks area due to rash and excoriation. Pt unable to describe or score level of pain. Folley catheter in place. Tele on. Right upperarm Picc line in place. No redness or edema noticed. Fall precautions in place. Call light in place.
[2022-05-31 10:05] LABS: HEMATOCRIT 42.7 % (42.0-52.0); MEAN CELL VOLUME 84 fl (80.0-100.0); MEAN CORPUSCULAR HEMOGLOBIN 30 pg (27-31); MEAN CORPUSCULAR HGB CONC 35 g/dl (33.0-37.0); MEAN PLATELET VOLUME 10.3 fl (7.4-10.4); PLATELET COUNT 196 K/mm3 (130-400); RED BLOOD COUNT 5.06 M/mm3 (4.20-5.60); REDCELL DISTRIBUTION WIDTH-CV 13.6 % (11.5-14.5)
[2022-05-31 10:22] LABS: CALCIUM 9.8 mg/dL (8.4-10.2); CREATININE, serum 0.94 mg/dL (0.72-1.25); POTASSIUM 3.9 mmol/L (3.5-4.5)
[2022-05-31 10:34] LABS: BAND 2 % (0-10); EOSINOPHIL 4 % (0-4); LYMPHOCYTE 15 % (20.0-51.0); METAMYELOCYTE 3 % (0-0); MYELOCYTE 1 % (0-0); NEUTROPHILS 62 % (42.0-75.2)
[2022-05-31 10:35] LABS: PLATELET ESTIMATE NORMAL (NORMAL)
--- NOTE | 2022-05-31 10:49 | NUR ---
MAYA met with patient and patients Araceli at bedside. Patient has not had PT during stay and voices concerns over the patient returning home today. MAYA made request for PT consult. Patient in to move into their [place] apartment within the next two months. MAYA made phone call to Lyric at [facility] to see if they have an opeing at the [facility]. Lyric states, she will need to talk with some people and call me back. Patients clinical referral faxed to Lyric. Patient is a passport member to [facility]. Lyric informed. MAYA spoke about the need for additional referrals should [facility] not be able to get him in. They would like [facility] as a last resort. Patients asks about IPR. Informed her that at this time, the patient is probably not a good candidate for that unit. Due to patients possible discharge, patient is presented with MCR.IM form. PT arrives to work with the patient. Patients provided education. Signed original palced in the patient's chart and copy provided back to the patient.
[2022-05-31 11:29] VITALS: BP 118/98; PULSE 72; TEMP 97.5
[2022-05-31] MEDS ORDERED: INVANZ INJ1 G/VIAL IV ×2 (15:22)
[2022-05-31 15:32] VITALS: BP 149/73; PULSE 63; TEMP 98
[2022-05-31] MEDS ORDERED: MERREM VIA500 MG/VIA IV (15:48)
--- NOTE | 2022-05-31 16:06 | NUR ---
Patient accepted to [facility] for admit today. Transportation arranged for a 1615 cotton picking machine operator time. Patient and patient's notified. Patient's discharge orders faxed to [facility]. Discharge plan: [facility]
[2022-05-31 16:45] VITALS: BP 149/73; PULSE 63; TEMP 98
--- NOTE | 2022-05-31 17:04 | NUR ---
Pt discharged. Report given to [facility] RN Nurse. Picc line in place CDI, no redness or edema. Folley catheter in place. [facility] staff escorted out pt and his out.
--- NOTE | 2022-05-31 17:13 | NUR ---
PICC line caps changed. Primary nurse notified.
== END 2022-05-31 16:45 | DRG 659 ==
LOC: COL.ER 12:34 → ICU 15:50 → MEDICAL 15:50 → ICU 05-26 09:41 → MEDICAL 05-29 16:30
PROVIDERS: Family Medicine; Internal Medicine; Nurse Practitioner Family; Student in an Organized Health Care Education/Training Program; Urology; ADMIT Internal Medicine
PROC: 0T778DZ Dilation of Left Ureter with Intraluminal Device, Via Natural or Artificial Opening Endoscopic (ICD-10-PCS; principal; 2022-05-26 16:00)
PROC: 02HV33Z Insertion of Infusion Device into Superior Vena Cava, Percutaneous Approach (ICD-10-PCS; 2022-05-26 16:00)
PROC: 02HV33Z Insertion of Infusion Device into Superior Vena Cava, Percutaneous Approach (ICD-10-PCS; 2022-05-27)
DX: T83.518A Infection and inflammatory reaction due to other urinary catheter, initial encounter (principal); G93.41 Metabolic encephalopathy; A41.50 Gram-negative sepsis, unspecified; R65.20 Severe sepsis without septic shock; I21.A1 Myocardial infarction type 2; E87.1 Hypo-osmolality and hyponatremia; N20.1 Calculus of ureter; E87.2 Acidosis; N17.9 Acute kidney failure, unspecified; N32.0 Bladder-neck obstruction; E87.6 Hypokalemia; I95.9 Hypotension, unspecified; B35.6 Tinea cruris; E16.2 Hypoglycemia, unspecified; I34.0 Nonrheumatic mitral (valve) insufficiency; I10 Essential (primary) hypertension; I48.91 Unspecified atrial fibrillation; I16.0 Hypertensive urgency; M54.9 Dorsalgia, unspecified; Z78.1 Physical restraint status; Z85.46 Personal history of malignant neoplasm of prostate; Z87.891 Personal history of nicotine dependence; Z88.2 Allergy status to sulfonamides
CPT/HCPCS: 99222-AI; 99233-AI; C1751; C1769; C2617; J0282; J0692; J0696; J1335; J1630; J1644; J1940; J2060; J2185; J2405; J3010; J3475; J3480; J7030; J7042; J7050; J7060; J7120; Q9967

== ENCOUNTER 2022-07-05 06:56 | Day surgery (SDC) | payer MEDICARE ==
[~2022-07-05] VITALS: Ht 170.2 cm; Wt 87.5 kg
[~2022-07-05 06:56] MED LIST changes: +COZAAR 25MG25 MG/TAB PO; -GRALISE600 MG PO; +INVANZ INJ1 G/VIAL IV; +MERREM VIA500 MG/VIA IV; +SINEMET 25/101 UDTAB PO
[2022-07-05] MEDS ORDERED: COZAAR 25MG25 MG/TAB PO (07:46)
[2022-07-05] MEDS ORDERED: MOBIC15 MG PO (07:48)
[2022-07-05 07:49] VITALS: BP 111/66; PULSE 57; TEMP 97.9
[2022-07-05] MEDS ORDERED: AMOXICILLIN 8751 TAB PO (10:12)
[2022-07-05] MEDS ORDERED: NORCO 325 MG-51 TAB PO (10:12)
[2022-07-05 10:35] VITALS: BP 124/70; PULSE 57; TEMP 96.6
[2022-07-05 10:50] VITALS: BP 123/67; PULSE 59
[2022-07-05 11:05] VITALS: BP 109/63; PULSE 61
[2022-07-05 11:20] VITALS: BP 111/64; PULSE 69
--- NOTE | 2022-07-05 13:28 | NUR ---
1035: Patient arrived back into bay 1 from PACU. Patient is alert and oriented. Vital signs stable. Report received from JINNY Shankar Patient requesting muffins and diet pepsi. Patient denies pain or nausea Call light left within reach. at bedside. 1050: Patient vitally stable. Tolerating food and drink well. Requesting an additonal diet pepsi. 1120: Patient denies urge to void at this time. Requesting an additional water and diet pepsi. 1145: Patient sitting on side of bed, attempting to void. Patient requesting to sit for awhile. 1215: Patient able to void successfully. Blood in urine noted. 1220: Patient bladder scanned for 15ml in bladder. Dr. Liang notified of patient being able to void with minimal urine in the bladder. Okay to discharge per Dr. Liang. Follow up appointment already made per . 1240: Patient got dressed with assistance from . IV removed without complications. Went through discharge instructions with patient and . Questions answered. Denies further needs at this time. Patient sent home with urinal. Patient escorted to patient entrance via wheelchair. along side. Patient got into personal unassisted and left in the care of his .
== END 2022-07-05 12:50 | disposition home or self-care (01) ==
LOC: SDCO 06:56
DX: N20.2 Calculus of kidney with calculus of ureter (principal); N32.0 Bladder-neck obstruction; Z87.440 Personal history of urinary (tract) infections; Z87.891 Personal history of nicotine dependence
CPT/HCPCS: C1769; C2617; J0690; J1100; J2405; J2704; J3010; J7120

== ENCOUNTER → 2024-05-13 | Outpatient (CLI) | payer MEDICARE ==
[~2024-05-13] MED LIST changes: +AMOXICILLIN 8751 TAB PO; +ARICEPT 5MG PO; +EXELON PAT4.6 MG/24 TD; +MULTIPLE VITAMI1 CAP PO; +NORVASC 5MG5 MG/TAB PO; +UROCIT-K 1010 MEQ PO
== END ==
LOC: COL.RAD 12:35
DX: G31.9 Degenerative disease of nervous system, unspecified (principal); G30.1 Alzheimer's disease with late onset

== ENCOUNTER → 2024-05-16 | Outpatient (CLI) | payer MEDICARE ==
[2024-05-16 17:53] LABS: COLLECTION METHOD CLEAN CATCH
[2024-05-16 18:00] LABS: URINE APPEARANCE CLOUDY (CLEAR/HAZY); URINE BLOOD NEGATIVE (NEGATIVE); URINE COLOR YELLOW (YELLOW); URINE GLUCOSE NEGATIVE (NEGATIVE); URINE KETONE TRACE (NEGATIVE); URINE NITRATE NEGATIVE (NEGATIVE); URINE PROTEIN(semi-quant) NEGATIVE (NEGATIVE); URINE UROBILINOGEN 0.2 E.U/dL (0.2-1.0)
== END ==
LOC: COL.LAB 17:51
PROVIDERS: Internal Medicine
DX: R39.15 Urgency of urination (principal); R30.9 Painful micturition, unspecified